=== PATIENT | male | born 1960 | race Caucasian/White ===

== ENCOUNTER → 2023-11-18 | Outpatient (REF) | payer OTHER ==
[2023-11-18 19:07] LABS: APPEARANCE, URINE CLEAR (CLEAR); BACTERIA, URINE AUTO NEGATIVE (NEGATIVE); BILIRUBIN, URINE AUTO NEGATIVE (NEGATIVE); BLOOD, URINE BLOOD NEGATIVE (NEGATIVE); COLOR, URINE YELLOW (YELLOW); GLUCOSE, URINE (UA) AUTO NEGATIVE (NEGATIVE); KETONE, URINE AUTO NEGATIVE (NEGATIVE); LEUKOCYTE ESTERASE, URINE AUTO NEGATIVE (NEGATIVE); MUCUS, URINE SMALL (NEGATIVE); NITRITE, URINE AUTO NEGATIVE (NEGATIVE); PROTEIN, URINE AUTO NEGATIVE (NEGATIVE); RBC, URINE AUTO 1 /HPF (0-3); SPECIFIC GRAVITY URINE AUTO 1.021 (1.002-1.035); SQUAMOUS EPITHELIAL CELL UR AU 0 /HPF (0-6); WBC, URINE AUTO 1 /HPF (0-3)
== END ==
LOC: M LAB REF 18:09
PROVIDERS: ATTEND Physician Assistant Medical
DX: N39.0 Urinary tract infection, site not specified (principal)

== ENCOUNTER 2023-12-14 14:01 | Emergency (ER) | payer OTHER ==
[~2023-12-14] VITALS: Ht 167.6 cm; Wt 107.9 kg
[2023-12-14 14:03] VITALS: BP 171/87; TEMP 97.9; O2SAT 96
[2023-12-14] MEDS ORDERED: TAMS1CAP17 (15:04)
[2023-12-14] MEDS ORDERED: RAMI5CAP60 (15:04)
[2023-12-14] MEDS ORDERED: JANU50TA8 (15:04)
[2023-12-14] MEDS ORDERED: XARE20TA (15:04)
[2023-12-14] MEDS ORDERED: SOTA120T (15:04)
[2023-12-14] MEDS ORDERED: ROSU20TA61 (15:04)
[2023-12-14] MEDS ORDERED: LANTINJ4 (15:04)
[2023-12-14] MEDS ORDERED: CHLO125TA (15:04)
== END 2023-12-14 21:24 | disposition left against medical advice (07) ==
LOC: M ED 14:01
DX: Z53.21 Procedure and treatment not carried out due to patient leaving prior to being seen by health care provider (principal)

== ENCOUNTER 2023-12-15 08:00 | Emergency (ER) | payer OTHER ==
[~2023-12-15] VITALS: Ht 172.7 cm; Wt 107.9 kg
[~2023-12-15 08:00] MED LIST: CHLO125TA; JANU50TA8; LANTINJ4; RAMI5CAP60; ROSU20TA61; SOTA120T; TAMS1CAP17; XARE20TA
[2023-12-15 10:24] LABS: BASO # 0.1 10^3/uL (0.0-0.2); BASO % 0.9 % (0.0-1.0); EOS # 0.2 10^3/uL (0.0-0.5); EOS % 2.1 % (0.0-3.0); HEMATOCRIT 38.5 % (42.0-52.0); HEMOGLOBIN 12.9 g/dl (13.5-17.5); LYMPH # 1.5 10^3/uL (1.5-5.0); LYMPH % 16.4 % (24.0-44.0); MEAN CORPUSCULAR HEMOGLOBIN 28.7 pg (27.0-33.0); MEAN CORPUSCULAR HGB CONC 33.5 g/dl (32.0-36.5); MEAN CORPUSCULAR VOLUME 85.7 fl (80.0-96.0); MONO # 0.7 10^3/uL (0.0-0.8); MONO % 7.4 % (2.0-8.0); NEUTROPHILS # 6.7 10^3/uL (1.5-8.5); PLATELET COUNT, AUTOMATED 258 10^3/uL (150-450); RED BLOOD COUNT 4.49 10^6/uL (4.30-6.10); WHITE BLOOD COUNT 9.2 10^3/uL (4.0-10.0)
[2023-12-15 10:35] LABS: INR 1.51; PARTIAL THROMBOPLASTIN TIME 36.5 SECONDS (24.8-34.2); PROTHROMBIN TIME 17.7 SECONDS (12.5-14.5)
[2023-12-15] MEDS: NS 1,000 ML IV ONE (10:51)
[2023-12-15 10:52] LABS: ALBUMIN 4.1 G/DL (3.2-5.2); ALKALINE PHOSPHATASE 61 U/L (46-116); ALT/SGPT 21 U/L (7.0-40); AST/SGOT 10 U/L (<34); BILIRUBIN,DIRECT 0.1 MG/DL (<0.4); BILIRUBIN,TOTAL 0.4 MG/DL (0.3-1.2); BLOOD UREA NITROGEN 16 MG/DL (9-23); CALCIUM LEVEL 9.8 MG/DL (8.3-10.6); CARBON DIOXIDE LEVEL 26 MMOL/L (20-31); CHLORIDE LEVEL 101 MMOL/L (98-107); CREATININE FOR GFR 0.78 MG/DL (0.70-1.30); GLOMERULAR FILTRATION RATE > 60.0 (>49); GLUCOSE, FASTING 118 MG/DL (74-106); POTASSIUM SERUM 3.6 MMOL/L (3.5-5.1); SODIUM LEVEL 136 MMOL/L (136-145); TOTAL PROTEIN 7.8 G/DL (5.7-8.2)
[2023-12-15 10:58] LABS: APPEARANCE, URINE CLEAR (CLEAR); BACTERIA, URINE AUTO NEGATIVE (NEGATIVE); BILIRUBIN, URINE AUTO NEGATIVE (NEGATIVE); BLOOD, URINE BLOOD NEGATIVE (NEGATIVE); COLOR, URINE YELLOW (YELLOW); GLUCOSE, URINE (UA) AUTO NEGATIVE (NEGATIVE); KETONE, URINE AUTO NEGATIVE (NEGATIVE); LEUKOCYTE ESTERASE, URINE AUTO NEGATIVE (NEGATIVE); MUCUS, URINE SMALL (NEGATIVE); NITRITE, URINE AUTO NEGATIVE (NEGATIVE); PROTEIN, URINE AUTO NEGATIVE (NEGATIVE); RBC, URINE AUTO 1 /HPF (0-3); SPECIFIC GRAVITY URINE AUTO 1.016 (1.002-1.035); SQUAMOUS EPITHELIAL CELL UR AU 0 /HPF (0-6); UROBILINOGEN, URINE AUTO 0.2 mg/dL (0.0-2.0); WBC, URINE AUTO 0 /HPF (0-3)
[2023-12-15] MEDS ORDERED: ISOVUE-370 76% 100ML VIAL As Ordered ONE (11:07)
[2023-12-15 13:35] VITALS: BP 153/77; TEMP 96.9; O2SAT 99
== END 2023-12-15 13:45 | disposition home or self-care (01) ==
LOC: M ED 08:00
DX: C64.9 Malignant neoplasm of unspecified kidney, except renal pelvis (principal); N28.89 Other specified disorders of kidney and ureter; I10 Essential (primary) hypertension; E78.5 Hyperlipidemia, unspecified; G47.22 Circadian rhythm sleep disorder, advanced sleep phase type; E11.9 Type 2 diabetes mellitus without complications; Z87.891 Personal history of nicotine dependence; Z79.4 Long term (current) use of insulin; Z79.01 Long term (current) use of anticoagulants; Z79.899 Other long term (current) drug therapy
CPT/HCPCS: 74178; 80048; 80076; 81001; 85025; 85610; 85730; 99284; Q9967

== ENCOUNTER → 2023-12-25 | Outpatient (CLI) | payer OTHER ==
[~2023-12-25] MED LIST changes: +ISOVUE-370 76% 100ML VIAL As Ordered ONE
== END ==
LOC: M RAD 07:18
PROVIDERS: ATTEND Physician Assistant
DX: N28.89 Other specified disorders of kidney and ureter (principal); J84.10 Pulmonary fibrosis, unspecified
CPT/HCPCS: 71260; Q9967

== ENCOUNTER 2024-01-11 05:51 | Day surgery (SDC) | payer OTHER ==
[~2024-01-11] VITALS: Ht 175.3 cm; Wt 106.5 kg
[~2024-01-11 05:51] MED LIST changes: -CHLO125TA; +CHLO125TA PO; -ISOVUE-370 76% 100ML VIAL As Ordered ONE; -JANU50TA8; +JANU50TA8 PO; -LANTINJ4; +LANTINJ4 SQ; -RAMI5CAP60; +RAMI5CAP60 PO; -ROSU20TA61; +ROSU20TA86 PO; -SOTA120T; +SOTA120T PO; -TAMS1CAP17; +TAMS1CAP17 PO; -XARE20TA; +XARE20TA PO
[2024-01-11] MEDS ORDERED: INSULIN LISPRO (NovoLOG) PER UNIT SC PRN (06:30)
[2024-01-11] MEDS ORDERED: GLUCOSE 4 GM CHEW PO PRN ×2 (06:30→07:35)
[2024-01-11] MEDS ORDERED: DEXTROSE 50% 50ML SYRINGE IV PRN ×2 (06:30→07:35)
[2024-01-11] MEDS ORDERED: GLUCAGON INJ 1MG VIAL SC PRN ×2 (06:30→07:35)
[2024-01-11] MEDS ORDERED: ACETAMINOPHEN 1000MG 100ML IV BAG As Ordered ONE (06:56)
[2024-01-11] MEDS ORDERED: ONDANSETRON 4MG 2ML VIAL As Ordered ONE (06:57)
[2024-01-11] MEDS ORDERED: SUGAMMADEX SODIUM 500 MG/5 ML VIAL (BRIDION) As Ordered ONE (06:57)
[2024-01-11] MEDS ORDERED: LIDOCAINE 2% 100MG/5ML SDV (FOR ANES.) As Ordered ONE (06:57)
[2024-01-11] MEDS ORDERED: propofoL 200 MG/20 ML VIAL As Ordered ONE (06:57)
[2024-01-11] MEDS ORDERED: ROCURONIUM BROMIDE 50MG/5ML VIAL As Ordered ONE (06:58)
[2024-01-11] MEDS ORDERED: fentaNYL 100 MCG/2 ML INJECTION As Ordered ONE (06:58)
[2024-01-11] MEDS ORDERED: MIDAZOLAM INJ 2MG/2ML VIAL As Ordered ONE (06:58)
[2024-01-11] MEDS ORDERED: HYDROmorphone HCL 2MG/ML 1ML VIAL As Ordered ONE (06:58)
[2024-01-11] MEDS ORDERED: KETOROLAC 60MG 2ML VIAL As Ordered ONE (07:01)
[2024-01-11] MEDS: LR 1,000 ML IV SCH ×2 (07:05→16:14)
[2024-01-11] MEDS: ceFAZolin SOD 2 GM in IV 1 EA IV ONE (07:30)
[2024-01-11] MEDS ORDERED: HOME MED LIST COMPLETE! XX SCH (07:30)
[2024-01-11] MEDS ORDERED: ACETAMINOPHEN TAB 650MG DOSE (2X325MG) PO PRN (07:35)
[2024-01-11] MEDS: LIDOCAINE 1% SDV 30ML VIAL As Ordered ONE (12:10)
[2024-01-11] MEDS ORDERED: fentaNYL 100 MCG/2 ML INJECTION IV PRN (12:20)
[2024-01-11] MEDS ORDERED: ONDANSETRON 4MG 2ML VIAL IV PRN (12:20)
[2024-01-11] MEDS: INSULIN LISPRO (NovoLOG) PER UNIT SC ONE (12:35)
[2024-01-11 13:02] LABS: HEMATOCRIT 41.6 % (42.0-52.0); HEMOGLOBIN 13.9 g/dl (13.5-17.5); MEAN CORPUSCULAR HEMOGLOBIN 28.4 pg (27.0-33.0); MEAN CORPUSCULAR HGB CONC 33.4 g/dl (32.0-36.5); MEAN CORPUSCULAR VOLUME 84.9 fl (80.0-96.0); PLATELET COUNT, AUTOMATED 231 10^3/uL (150-450); WHITE BLOOD COUNT 14.8 10^3/uL (4.0-10.0)
[2024-01-11] MEDS ORDERED: ALBUTEROL 6.7GM INHALER **FOR ANES. CART/OMNICELL ONLY As Ordered ONE (13:23)
[2024-01-11] MEDS: HYDROMORPHONE HCL 0.5 MG/ 0.5 ML SYRINGE IV PRN ×2 (13:28→14:39)
[2024-01-11 13:29] LABS: BLOOD UREA NITROGEN 15 MG/DL (9-23); CALCIUM LEVEL 9.2 MG/DL (8.3-10.6); CARBON DIOXIDE LEVEL 25 MMOL/L (20-31); CHLORIDE LEVEL 100 MMOL/L (98-107); GLOMERULAR FILTRATION RATE > 60.0 (>49); GLUCOSE, FASTING 189 MG/DL (74-106); POTASSIUM SERUM 4.5 MMOL/L (3.5-5.1); SODIUM LEVEL 134 MMOL/L (136-145)
[2024-01-11] MEDS: oxyCODONE 5MG TAB PO PRN (14:07)
[2024-01-11 15:00] VITALS: BP 137/73; TEMP 96.8; O2SAT 94
[2024-01-11 15:30] VITALS: BP 138/72; TEMP 96.3; O2SAT 91
[2024-01-11 16:00] VITALS: BP 136/72; TEMP 96.8; O2SAT 90
[2024-01-11] MEDS: NS 1,000 ML IV SCH (16:14)
[2024-01-11] MEDS: INSULIN LISPRO (NovoLOG) PER UNIT SC SCH ×2 (16:14→21:00)
[2024-01-11] MEDS: ceFAZolin SOD 1 GM in D5W MINI-BAG PLUS 50 ML IV SCH (16:24)
[2024-01-11 17:00] VITALS: BP 142/73; TEMP 96.6; O2SAT 94
[2024-01-11] MEDS: ONDANSETRON 4MG 2ML VIAL IV PRN (17:09)
[2024-01-11] MEDS: PERCOCET 5MG/325MG TAB PO PRN ×2 (17:43→22:08)
[2024-01-11 18:00] VITALS: BP 144/73; TEMP 96.8; O2SAT 94
[2024-01-11 20:00] VITALS: BP 147/80; TEMP 97.9; O2SAT 91
[2024-01-11] MEDS ORDERED: METOCLOPRAMIDE INJ 10MG/2ML VIAL IV PRN (21:25)
[2024-01-11] MEDS: ROSUVASTATIN 10 MG TAB (CRESTOR) PO SCH (22:01)
[2024-01-11] MEDS: DOCUSATE SODIUM 100MG CAPSULE PO SCH (22:01)
[2024-01-11] MEDS: TAMSULOSIN 0.4 MG CAP PO SCH (22:01)
[2024-01-11] MEDS: SOTALOL HCL 80 MG TAB PO SCH (22:05)
[2024-01-12] VITALS: BP 142/71; TEMP 98.4; O2SAT 93
[2024-01-12 04:44] VITALS: BP 139/68; TEMP 97.2; O2SAT 92
[2024-01-12 08:00] VITALS: BP 139/66; TEMP 98.1; O2SAT 91
[2024-01-12 08:05] VITALS: BP 139/66
[2024-01-12] MEDS: ramipriL 5 MG CAP PO SCH (08:05)
[2024-01-12] MEDS: CHLORTHALIDONE 25 MG TAB PO SCH (08:06)
[2024-01-12 08:15] LABS: HEMATOCRIT 34.4 % (42.0-52.0); MEAN CORPUSCULAR HEMOGLOBIN 28.6 pg (27.0-33.0); MEAN CORPUSCULAR HGB CONC 33.7 g/dl (32.0-36.5); MEAN CORPUSCULAR VOLUME 84.9 fl (80.0-96.0); PLATELET COUNT, AUTOMATED 204 10^3/uL (150-450); RED BLOOD COUNT 4.05 10^6/uL (4.30-6.10); WHITE BLOOD COUNT 12.6 10^3/uL (4.0-10.0)
[2024-01-12 08:21] LABS: HEMOGLOBIN 11.6 g/dl (13.5-17.5)
[2024-01-12 08:33] LABS: BLOOD UREA NITROGEN 15 MG/DL (9-23); CALCIUM LEVEL 8.5 MG/DL (8.3-10.6); CARBON DIOXIDE LEVEL 26 MMOL/L (20-31); CHLORIDE LEVEL 102 MMOL/L (98-107); CREATININE FOR GFR 1.24 MG/DL (0.70-1.30); GLOMERULAR FILTRATION RATE > 60.0 (>49); GLUCOSE, FASTING 122 MG/DL (74-106); POTASSIUM SERUM 3.6 MMOL/L (3.5-5.1); SODIUM LEVEL 135 MMOL/L (136-145)
[2024-01-12] MEDS ORDERED: PERCOCET PO (10:53)
[2024-01-12] MEDS ORDERED: COLA100C5 PO (10:53)
[2024-01-12] MEDS ORDERED: MORPHINE 2 MG/ML 1ML VIAL IV ONE (10:55)
[2024-01-12] MEDS: MORPHINE 2 MG/ML 1ML VIAL IV ONE (11:31)
[2024-01-12 11:45] VITALS: BP 132/65; TEMP 97.7; O2SAT 90
[2024-01-30] MEDS ORDERED: XARE20TA (13:15)
[2024-02-12] MEDS ORDERED: PRED20TA PO (14:03)
== END 2024-01-12 16:28 | disposition home or self-care (01) ==
LOC: UNDOADMIN 05:51 → M SDC 05:51 → M ED INP 05:51 → M OR 05:51 → EDSTATUS 07:30 → M OR 15:04 → M MSPAV 15:04 → M ED INP 15:04 → M MSPAV 15:04 → M SDC 01-12 16:28 → UNDODISIN 01-12 16:28
PROVIDERS: ATTEND Urology
DX: C64.1 Malignant neoplasm of right kidney, except renal pelvis (principal); R11.2 Nausea with vomiting, unspecified; I48.91 Unspecified atrial fibrillation; E11.9 Type 2 diabetes mellitus without complications; G47.30 Sleep apnea, unspecified; Z79.899 Other long term (current) drug therapy
CPT/HCPCS: 36415; 50545; 80048; 85027; 86850; 86900; 86901; 88307; 96361; 96365; 96366; 96375; 96376; J0131; J0665; J0690; J1100; J1170; J1815; J1885; J2250; J2405; J3010; S2900

== ENCOUNTER → 2024-01-24 | Outpatient (CLI) | payer OTHER ==
[~2024-01-24] MED LIST changes: +COLA100C5 PO; +PERCOCET PO; +ROSU20TA61 PO; -ROSU20TA86 PO; +XARE20TA
[2024-01-24 17:53] LABS: HEMATOCRIT 39.1 % (42.0-52.0); HEMOGLOBIN 12.7 g/dl (13.5-17.5); MEAN CORPUSCULAR HEMOGLOBIN 28.2 pg (27.0-33.0); MEAN CORPUSCULAR HGB CONC 32.5 g/dl (32.0-36.5); MEAN CORPUSCULAR VOLUME 86.7 fl (80.0-96.0); PLATELET COUNT, AUTOMATED 301 10^3/uL (150-450); RED BLOOD COUNT 4.51 10^6/uL (4.30-6.10); WHITE BLOOD COUNT 9.8 10^3/uL (4.0-10.0)
[2024-01-24 18:25] LABS: BLOOD UREA NITROGEN 16 MG/DL (9-23); CARBON DIOXIDE LEVEL 28 MMOL/L (20-31); CHLORIDE LEVEL 103 MMOL/L (98-107); CREATININE FOR GFR 1.15 MG/DL (0.70-1.30); GLOMERULAR FILTRATION RATE > 60.0 (>49); GLUCOSE, FASTING 120 MG/DL (74-106); POTASSIUM SERUM 4.3 MMOL/L (3.5-5.1); SODIUM LEVEL 137 MMOL/L (136-145)
== END ==
LOC: M PLALAB 15:11
PROVIDERS: ATTEND Physician Assistant
DX: C46.1 Kaposi's sarcoma of soft tissue (principal)

== ENCOUNTER → 2024-03-27 | Outpatient (CLI) | payer OTHER ==
[~2024-03-27] MED LIST changes: +ISOVUE-370 76% 100ML VIAL As Ordered ONE; +MAGO400T2 PO; +PRED20TA PO; -ROSU20TA61 PO; +ROSU20TA86 PO
== END ==
LOC: M RAD 11:10
PROVIDERS: ATTEND Internal Medicine Medical Oncology
DX: C64.9 Malignant neoplasm of unspecified kidney, except renal pelvis (principal); J98.11 Atelectasis; R91.8 Other nonspecific abnormal finding of lung field; I25.10 Atherosclerotic heart disease of native coronary artery without angina pectoris; R59.0 Localized enlarged lymph nodes
CPT/HCPCS: 71260; Q9967

== ENCOUNTER → 2024-04-21 | Outpatient (CLI) | payer OTHER ==
[~2024-04-21] MED LIST changes: -ISOVUE-370 76% 100ML VIAL As Ordered ONE
== END ==
LOC: M PLARAD 10:42
PROVIDERS: ATTEND Internal Medicine Medical Oncology
DX: C64.1 Malignant neoplasm of right kidney, except renal pelvis (principal)
CPT/HCPCS: 78815; A9552

== ENCOUNTER 2024-05-28 07:00 | Day surgery (SDC) | payer OTHER ==
[~2024-05-28] VITALS: Ht 172.7 cm; Wt 109.8 kg
[~2024-05-28 07:00] MED LIST changes: +GLYCOPYRROLATE INJ 0.2 MG/ML 2 ML VIAL As Ordered ONE; +LIDOCAINE 2% 100MG/5ML SDV (FOR ANES.) As Ordered ONE; +MIDAZOLAM INJ 2MG/2ML VIAL As Ordered ONE; +ONDANSETRON 4MG 2ML VIAL As Ordered ONE; +PEMB100V2 IV; +ROCURONIUM BROMIDE 50MG/5ML VIAL As Ordered ONE; +SUGAMMADEX SODIUM 500 MG/5 ML VIAL (BRIDION) As Ordered ONE; -XARE20TA; +fentaNYL 100 MCG/2 ML INJECTION As Ordered ONE; +propofoL 200 MG/20 ML VIAL As Ordered ONE
[2024-05-28] MEDS: NS (Normal Saline) 0.9% 1,000 ML IV SCH (08:24)
[2024-05-28] MEDS: CETACAINE SPRAY 5GM As Ordered ONE (09:27)
[2024-05-28] MEDS ORDERED: NS (Normal Saline) 0.9% 1,000 ML IV SCH (10:00)
[2024-05-28] MEDS ORDERED: oxyCODONE 5MG TAB PO PRN (10:00)
[2024-05-28] MEDS ORDERED: fentaNYL 100 MCG/2 ML INJECTION IV PRN (10:00)
[2024-05-28] MEDS ORDERED: ONDANSETRON 4MG 2ML VIAL IV PRN (10:00)
[2024-05-28] MEDS ORDERED: HYDROMORPHONE HCL 0.5 MG/ 0.5 ML SYRINGE IV PRN (10:00)
[2024-05-28 10:38] VITALS: BP 151/79; TEMP 97.2; O2SAT 94
== END 2024-05-28 11:58 | disposition home or self-care (01) ==
LOC: M SDC 07:00
PROVIDERS: ATTEND Internal Medicine Pulmonary Disease
DX: R59.0 Localized enlarged lymph nodes (principal); I89.8 Other specified noninfective disorders of lymphatic vessels and lymph nodes; I48.0 Paroxysmal atrial fibrillation; I10 Essential (primary) hypertension; E78.00 Pure hypercholesterolemia, unspecified; E11.9 Type 2 diabetes mellitus without complications; G47.30 Sleep apnea, unspecified; N40.0 Benign prostatic hyperplasia without lower urinary tract symptoms; Z85.528 Personal history of other malignant neoplasm of kidney; Z79.899 Other long term (current) drug therapy; Z79.4 Long term (current) use of insulin; Z79.01 Long term (current) use of anticoagulants; Z79.624 Long term (current) use of inhibitors of nucleotide synthesis; Z92.21 Personal history of antineoplastic chemotherapy; Z90.5 Acquired absence of kidney
CPT/HCPCS: 31652; 71045; 88173; 88305; J1100; J1596; J2250; J2405; J3010

== ENCOUNTER → 2024-09-30 | Outpatient (CLI) | payer OTHER ==
[~2024-09-30] MED LIST changes: -GLYCOPYRROLATE INJ 0.2 MG/ML 2 ML VIAL As Ordered ONE; +ISOVUE-370 76% 100ML VIAL ONE; -LIDOCAINE 2% 100MG/5ML SDV (FOR ANES.) As Ordered ONE; -MIDAZOLAM INJ 2MG/2ML VIAL As Ordered ONE; -ONDANSETRON 4MG 2ML VIAL As Ordered ONE; -ROCURONIUM BROMIDE 50MG/5ML VIAL As Ordered ONE; -SUGAMMADEX SODIUM 500 MG/5 ML VIAL (BRIDION) As Ordered ONE; -fentaNYL 100 MCG/2 ML INJECTION As Ordered ONE; -propofoL 200 MG/20 ML VIAL As Ordered ONE
== END ==
LOC: M PLAIMG 15:16
PROVIDERS: ATTEND Internal Medicine Medical Oncology
DX: C64.9 Malignant neoplasm of unspecified kidney, except renal pelvis (principal)

== ENCOUNTER 2024-12-15 06:15 | Observation (INO) | payer OTHER ==
[~2024-12-15] VITALS: Ht 172.7 cm; Wt 111.6 kg
[~2024-12-15 06:15] MED LIST changes: -ISOVUE-370 76% 100ML VIAL ONE
[2024-12-15] MEDS ORDERED: LR 1,000 ML IV SCH (06:35)
[2024-12-15] MEDS ORDERED: HOME MED LIST COMPLETE! XX SCH (08:00)
[2024-12-15] MEDS ORDERED: ONDANSETRON 4MG 2ML VIAL As Ordered ONE (09:12)
[2024-12-15] MEDS ORDERED: ACETAMINOPHEN 1000MG/100ML IV BAG As Ordered ONE (09:12)
[2024-12-15] MEDS ORDERED: SUGAMMADEX SODIUM 500 MG/5 ML VIAL As Ordered ONE (09:12)
[2024-12-15] MEDS ORDERED: KETOROLAC 30 MG/ML 1 ML VIAL As Ordered ONE (09:12)
[2024-12-15] MEDS ORDERED: MIDAZOLAM INJ 2 MG/2 ML VIAL As Ordered ONE (09:12)
[2024-12-15] MEDS ORDERED: dexAMETHasone 4 MG/ML 1 ML VIAL As Ordered ONE (09:12)
[2024-12-15] MEDS ORDERED: ROCURONIUM BROMIDE 50MG/5ML VIAL As Ordered ONE (09:13)
[2024-12-15] MEDS ORDERED: LIDOCAINE 2% 100 MG/5 ML SDV (FOR ANES.) As Ordered ONE (09:13)
[2024-12-15] MEDS: ceFAZolin SOD 2 GM IV ONCE IV ONE (09:45)
[2024-12-15] MEDS ORDERED: GLYCOPYRROLATE INJ 0.2 MG/ML 2 ML VIAL As Ordered ONE (09:50)
[2024-12-15] MEDS ORDERED: HYDROmorphone HCL 2 MG/ML 1 ML VIAL As Ordered ONE (12:32)
[2024-12-15] MEDS: LIDOCAINE 1% SDV 30 ML VIAL As Ordered ONE (14:26)
[2024-12-15] MEDS: LR 1,000 ML IV SCH ×2 (14:30→16:15)
[2024-12-15] MEDS ORDERED: diphenhydrAMINE 50 MG/ML VIAL IV PRN (14:30)
[2024-12-15] MEDS ORDERED: HYDROMORPHONE HCL 0.5 MG/0.5 ML SYRINGE IV PRN (14:30)
[2024-12-15] MEDS ORDERED: MORPHINE 4 MG/ML 1 ML VIAL IV PRN (14:45)
[2024-12-15] MEDS ORDERED: ONDANSETRON 4MG 2ML VIAL IV PRN (14:45)
[2024-12-15] MEDS ORDERED: KETOROLAC 30 MG/ML 1 ML VIAL IV PRN (14:45)
[2024-12-15] MEDS ORDERED: PERCOCET 5MG/325MG TAB PO PRN (14:45)
[2024-12-15] MEDS: INSULIN LISPRO (NovoLOG) PER UNIT SC PRN (15:07)
[2024-12-15 16:08] VITALS: BP 137/72; TEMP 96.9; O2SAT 94
[2024-12-15] MEDS: ACETAMINOPHEN 325 MG TAB PO ONE (17:18)
[2024-12-15 18:57] VITALS: BP 128/73; TEMP 96.8; O2SAT 95
[2024-12-15] MEDS ORDERED: GLUCOSE 4 GM CHEW PO PRN (19:50)
[2024-12-15] MEDS ORDERED: GLUCAGON INJ 1 MG VIAL SC PRN (19:50)
[2024-12-15] MEDS ORDERED: DEXTROSE 50% 50 ML SYRINGE IV PRN (19:50)
[2024-12-15 20:45] VITALS: BP 128/68; TEMP 97.2; O2SAT 95
[2024-12-15] MEDS ORDERED: PILL CUTTER 1 EACH XX PRN (21:05)
[2024-12-15] MEDS: TAMSULOSIN 0.4 MG CAP PO SCH (21:12)
[2024-12-15] MEDS: SOTALOL HCL 80 MG TAB PO SCH (21:13)
[2024-12-15 21:40] VITALS: BP 138/68; TEMP 97.3; O2SAT 96
[2024-12-16 01:42] VITALS: BP 129/62; TEMP 97.2; O2SAT 95
[2024-12-16 05:38] VITALS: BP 132/65; TEMP 97.2; O2SAT 94
[2024-12-16 06:49] LABS: BASO # 0.1 10^3/uL (0.0-0.2); BASO % 0.4 % (0.0-1.0); EOS # 0.4 10^3/uL (0.0-0.5); EOS % 3.6 % (0.0-3.0); LYMPH # 1.0 10^3/uL (1.5-5.0); LYMPH % 7.8 % (24.0-44.0); MONO # 0.9 10^3/uL (0.0-0.8); MONO % 7.2 % (2.0-8.0); NEUTROPHILS # 9.8 10^3/uL (1.5-8.5); NEUTROPHILS % 80.6 % (36.0-66.0); PLATELET COUNT, AUTOMATED 198 10^3/uL (150-450)
[2024-12-16 07:22] LABS: CALCIUM LEVEL 8.9 MG/DL (8.3-10.6); CARBON DIOXIDE LEVEL 29.0 MMOL/L (20-31); CHLORIDE LEVEL 99.0 MMOL/L (98-107); CREATININE FOR GFR 1.25 MG/DL (0.70-1.30); GLOMERULAR FILTRATION RATE 65.1 (>49); POTASSIUM SERUM 3.9 MMOL/L (3.5-5.1); SODIUM LEVEL 138.0 MMOL/L (136-145)
[2024-12-16] MEDS ORDERED: ENOXAPARIN 30 MG/0.3 ML SYRINGE (J1650 PER 10MG) SC SCH (09:00)
[2024-12-16 09:05] LABS: C REACTIVE PROTEIN QUANTITATIV 1.53 MG/DL (<1.0)
[2024-12-16] MEDS: ENOXAPARIN 40 MG/0.4 ML SYRINGE (J1650 PER 10MG) SC SCH (09:25)
[2024-12-16] MEDS: INSULIN LISPRO (NovoLOG) PER UNIT SC SCH (09:26)
[2024-12-16] MEDS: ROSUVASTATIN 10 MG TAB PO SCH (09:27)
[2024-12-16] MEDS: ACETAMINOPHEN 325 MG TAB PO PRN (09:27)
[2024-12-16 09:30] VITALS: BP 119/62
[2024-12-16] MEDS: CHLORTHALIDONE 25 MG TAB PO SCH (09:30)
[2024-12-16 09:53] VITALS: BP 119/62; TEMP 97.2; O2SAT 92
[2024-12-16 12:08] LABS: BASO # 0.0 10^3/uL (0.0-0.2); BASO % 0.2 % (0.0-1.0); EOS # 0.4 10^3/uL (0.0-0.5); EOS % 3.6 % (0.0-3.0); LYMPH # 1.2 10^3/uL (1.5-5.0); LYMPH % 10.3 % (24.0-44.0); MONO # 0.8 10^3/uL (0.0-0.8); MONO % 6.9 % (2.0-8.0); NEUTROPHILS # 9.4 10^3/uL (1.5-8.5); NEUTROPHILS % 78.6 % (36.0-66.0); PLATELET COUNT, AUTOMATED 211 10^3/uL (150-450)
[2024-12-16 13:44] VITALS: BP 119/62; TEMP 97.2; O2SAT 89
[2024-12-16] MEDS ORDERED: LEVO75TAB PO (14:52)
[2024-12-16] MEDS ORDERED: PERCOCET PO (14:52)
[2024-12-25] MEDS ORDERED: HYDR28CR52 TOP (13:36)
== END 2024-12-16 16:06 | disposition home or self-care (01) ==
LOC: M SDC 06:15 → M RR INP 06:16 → M MSPAV 15:55
PROVIDERS: ADMIT Surgery; ATTEND Surgery
DX: K43.0 Incisional hernia with obstruction, without gangrene (principal); M62.08 Separation of muscle (nontraumatic), other site; K56.50 Intestinal adhesions [bands], unspecified as to partial versus complete obstruction; Z85.528 Personal history of other malignant neoplasm of kidney; Z90.5 Acquired absence of kidney; Z92.21 Personal history of antineoplastic chemotherapy; I48.91 Unspecified atrial fibrillation; E11.9 Type 2 diabetes mellitus without complications; G47.30 Sleep apnea, unspecified; Z79.899 Other long term (current) drug therapy
CPT/HCPCS: 36415; 49594; 49999; 64488; 80048; 85025; 86140; 96372; C1781; J0131; J0665; J0666; J0690; J1100; J1171; J1596; J1650; J1815; J1885; J2250; J2405; J3010; S2900

== ENCOUNTER → 2024-12-25 | Outpatient (CLI) | payer OTHER ==
[~2024-12-25] MED LIST changes: +HYDR28CR52 TOP; +ISOVUE-370 76% 100 ML VIAL As Ordered ONE; +LEVO75TAB PO
== END ==
LOC: M RAD 11:38
PROVIDERS: ATTEND Internal Medicine Medical Oncology
DX: C65.9 Malignant neoplasm of unspecified renal pelvis (principal)

== ENCOUNTER → 2025-04-24 | Outpatient (CLI) | payer OTHER | LOC: M RAD 10:38 | PROVIDERS: ATTEND Internal Medicine Medical Oncology | DX: C64.9 Malignant neoplasm of unspecified kidney, except renal pelvis (principal) | CPT/HCPCS: 71260; 74177; Q9967 ==